=== PATIENT | male | born 1985 | race Caucasian/White ===

== ENCOUNTER 2017-03-02 15:01 | Emergency (ER) | payer SELFPAY ==
[~2017-03-02] VITALS: Ht 172.7 cm; Wt 66.5 kg
[2017-03-02 15:11] VITALS: Ht 172.7 cm; Wt 66.5 kg
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
--- NOTE | 2017-03-02 16:44 | RADRPT ---
PROCEDURE: XR Left Tibia-Fibula CLINICAL INDICATION: Trauma TECHNIQUE: AP and lateral radiographs were submitted COMPARISON: None FINDINGS: Osseous structures: appear well mineralized and intact with no fracture or destructive process iden tified. Joint spaces: are well maintained, with no significant spurring, erosion or joint effusion evident. Soft tissues: appear unremarkable. IMPRESSION: Unremarkable left tibia-fibula study. Physician Wei Date Time Electronically viewed and signed by Saud Orosco Physician on 03/02/2017 16:44 /
[2017-03-02] MEDS ORDERED: ACET325T33 PO (16:53)
== END 2017-03-02 17:16 | disposition home or self-care (01) ==
LOC: FTE 15:01
DX: S49.92XA Unspecified injury of left shoulder and upper arm, initial encounter (principal); S89.92XA Unspecified injury of left lower leg, initial encounter; V23.4XXA Motorcycle driver injured in collision with car, pick-up truck or van in traffic accident, initial encounter
CPT/HCPCS: 73030; 73590